=== PATIENT | female | born 2005 | race Caucasian/White ===

== ENCOUNTER 2025-03-23 12:15 | Inpatient (IN) ==
--- NOTE | 2025-03-23 13:03 | Labor Progress Brief Note ---
Date of Service March 23, 2025 Subjective 19yo @ 39w3d with elevated BP at office visit today. She does not currently have any STOCK but admits there has been one on and off for the last 3 days, not severe enough to have tried treatment and does not want tylenol at this time. No vision changes, no RUQ pain, edema stable and mild. Assessment & Plan (1) Hypertension affecting in third trimester: Plan: Labs and serial BP pending, but likely to meet gHTN criteria and need IOL. Scheduled for tomorrrow, could begin today prn. Physical Exam Physical Exam: BP on arrival 162/98. FHT Cat 1, [place] quiet. Gen: NAD Abd: Gravid/AGA, RUQ without TTP or liver enlargement Ext: 1+ edema bilateral LE, 2+ DTR R patella Results & Data Vital Signs (Past 12 Hours) Vital Signs Pulse BP 03/23/25 12:49 71 162/98 H 03/23/25 12:31 74 136/92 Coding Level of Care Code None Diagnoses Hypertension affecting in third trimester O16.3
[2025-03-23 13:22] LABS: Hematocrit (blood only) 34.8 % (37.0-47.0); Hemoglobin 11.7 g/dl (12.0-16.0); Immature Granulocytes # (auto) 0.07 K/uL (0.01-0.20); Immature Granulocytes % (auto) 0.8 %; Mean Corpuscular Hemoglobin 29.0 pg (25.0-34.0); Mean Corpuscular Volume 86.4 fL (80.0-100.0); Platelet Count 144 K/uL (130-400); RDW Standard Deviation 40.5 fL (36.4-46.3); Red Blood Count 4.03 M/uL (4.20-5.40); White Blood Count 8.69 K/ul (4.8-10.8)
[2025-03-23 13:29] LABS: Alanine Aminotransferase 15.0 U/L (7-52); Albumin Globulin Ratio 1.1 (0.9-2); Albumin Level 3.0 gm/dl (3.4-5.0); Alkaline Phosphatase 141.0 U/L (34-104); Anion Gap 6.0 (3-11); Bilirubin,Total 0.2 mg/dl (0.2-1.0); Blood Urea Nitrogen 14.0 mg/dl (6-23); Calcium 9.0 mg/dl (8.6-10.3); Carbon Dioxide 24.0 mmol/L (21-32); Chloride 107.0 mmol/L (98-107); Creatinine Clr Calc Pharmacy 197.4 ml/min; Globulin 2.8 gm/dl (2.5-4.0); Glucose 101.0 mg/dl (70-99(Fasting)); Potassium 3.9 mmol/L (3.5-5.1); Sodium 137.0 mmol/L (136-145); Total Protein 5.8 gm/dl (6.0-8.3)
[2025-03-23 14:22] LABS: Protein Creatinine Ratio Urine 5.1 (0-0.2); Total Protein Urine Random 649.0 mg/dl (0-11.9)
[2025-03-23] MEDS ORDERED: OXYTOCIN 30 UNITS/NSS 30 UNITS/500 ML BAG IV PRN (14:28)
--- NOTE | 2025-03-23 14:34 | Labor Progress Brief Note ---
Date of Service March 23, 2025 Subjective Feels well, denies PIH s/sx. Assessment & Plan (1) Severe preeclampsia: Plan: Severe range HTN with >5g estimated proteinuria, STOCK intermittently for a few days. Will manage as severe preeclampsia at 39+ weeks with IOL, Magnesium, procardia 20mg PO x1 now for acute HTN. Patient counseled and all questions answered, agreeable to proceed. Coelho placed. Physical Exam Physical Exam: BP elevated to max 187/101 Pr/Cr ratio 5.1gm Serum labs: plts 144, Cr 0.53, AST/ALT normal. Genitourinary: FHT Cat 1 [place] quiet monitoring was used to ensure reassuring status. The patient was verbally consented for placement of a coelho for cervical ripening, with discussion of risks, benefits and alternatives. All her questions were answered. Her legs were placed in lithotomy position. A lubricated, gloved hand was used to examine the cervix which was 1/50/-2/post/firm. A stylet was lubricated and inserted into a coelho catheter to give it stiffness, and the coelho catheter was then advanced along my fingers until it reached the external cervical os. The coelho was then fed forward off of the stylet, which was itself never moved beyond the external os, such that the soft catheter advanced into the uterine cavity outside of the amnion until the balloon was definitely above the internal cervical os. The balloon was then inflated using sterile water to 30cc volume. Gentle traction was used to seat the balloon downward against the internal cervical os. My hand and the stylet were removed from the vagina, and the coelho was secured to the patient's leg with a standard coelho holding sticker. There was no significant bleeding or leakage of fluid. The heart tones remained reassuring after this process, which the patient tolerated well. Results & Data Vital Signs (Past 12 Hours) Vital Signs Temp Pulse Resp BP O2 Del Method 03/23/25 14:06 81 187/101 H 03/23/25 13:33 70 145/101 H 03/23/25 13:23 71 140/96 03/23/25 13:08 75 147/101 H 03/23/25 12:49 98.8 F 71 18 162/98 H Room Air 03/23/25 12:49 71 162/98 H 10/15/25 12:31 74 136/92 Coding Level of Care Code None Diagnoses Severe preeclampsia O14.10
[2025-03-23] MEDS ORDERED: SODIUM CHLORIDE 0.9% 100 ML IV PRN (14:38)
[2025-03-23] MEDS: NIFEdipine 10 MG CAP PO STA (14:48)
[2025-03-23] MEDS: LACTATED RINGER'S 1,000 ML IV PRN (14:51)
[2025-03-23] MEDS: MAGNESIUM SULFATE / WTR 40 GM/1,000 ML BAG IV SCH (14:54)
[2025-03-23] MEDS: MAG SULFATE 4GM BOLUS FROM BAG IV ONE (14:54)
[2025-03-23 15:04] LABS: Hematocrit (blood only) 34.6 % (37.0-47.0); Hemoglobin 12.1 g/dl (12.0-16.0); Mean Corpuscular Hemoglobin 30.3 pg (25.0-34.0); Mean Corpuscular Volume 86.5 fL (80.0-100.0); Platelet Count 141 K/uL (130-400); RDW Standard Deviation 40.4 fL (36.4-46.3); Red Blood Count 4.00 M/uL (4.20-5.40); White Blood Count 9.10 K/ul (4.8-10.8)
[2025-03-23] MEDS: OXYTOCIN 30 UNITS/NSS 30 UNITS/500 ML BAG IV PRN (15:29)
[2025-03-23] MEDS: LABETALOL HCL IV 5 MG/ML 20ML IV STA (17:13)
[2025-03-23] MEDS: ACETAMINOPHEN 325 MG TAB PO PRN (18:38)
--- NOTE | 2025-03-24 07:30 | Labor Progress Brief Note ---
Date of Service March 24, 2025 Subjective Tolerating ctx and pressure Denies pain Assessment & Plan (1) Severe preeclampsia: Plan: Continue IOL, Mag, and offer epidural on request. AROM likely next check. Admission and Anticipated Discharge Date Admission Date: March 23, 2025 Physical Exam Genitourinary: Riggs out with gentle tug; cvx 4cm/50/-2 No LOF FHT Cat 1 [place] mostly quiet Results & Data Vital Signs (Past 12 Hours) Vital Signs Temp Pulse Resp BP Pulse Ox 03/24/25 07:23 83 99 03/24/25 07:18 100 03/24/25 07:18 93 H 03/24/25 07:18 103 H 144/111 H 03/24/25 07:13 85 100 03/24/25 07:11 20 03/24/25 07:09 90 93 03/24/25 07:08 92 H 98 03/24/25 07:03 97 H 100 03/24/25 06:58 85 97 03/24/25 06:53 81 97 03/24/25 06:49 80 176/89 H 03/24/25 06:48 83 99 03/24/25 06:43 80 96 03/24/25 06:38 84 97 03/24/25 06:33 78 96 03/24/25 06:28 80 97 03/24/25 06:23 81 96 03/24/25 06:18 78 163/95 H 99 03/24/25 06:13 77 98 03/24/25 06:08 83 97 03/24/25 06:03 83 100 03/24/25 06:00 18 03/24/25 05:58 79 100 03/24/25 05:53 91 H 99 03/24/25 05:48 90 100 03/24/25 05:43 78 100 03/24/25 05:38 76 100 03/24/25 05:33 81 99 03/24/25 05:28 78 97 03/24/25 05:23 70 99 03/24/25 05:18 99 03/24/25 05:18 70 03/24/25 05:18 68 120/66 03/24/25 05:13 77 99 03/24/25 05:08 72 98 03/24/25 05:03 71 98 03/24/25 05:00 15 03/24/25 04:58 74 99 03/24/25 04:53 72 99 03/24/25 04:48 98 03/24/25 04:48 71 03/24/25 04:48 73 133/72 03/24/25 04:43 72 98 03/24/25 04:38 73 98 03/24/25 04:33 79 99 03/24/25 04:28 75 98 03/24/25 04:23 73 100 03/24/25 04:18 99 03/24/25 04:18 85 03/24/25 04:18 71 118/72 03/24/25 04:12 77 100 03/24/25 04:07 83 100 03/24/25 04:02 79 99 03/24/25 04:00 18 03/24/25 03:57 96 H 100 03/24/25 03:52 79 99 03/24/25 03:47 87 100 03/24/25 03:46 78 160/95 H 03/24/25 03:42 81 100 03/24/25 03:37 79 100 03/24/25 03:32 81 100 03/24/25 03:27 89 100 03/24/25 03:22 90 100 03/24/25 03:17 86 99 03/24/25 03:12 81 100 03/24/25 03:07 84 100 03/24/25 03:02 85 100 03/24/25 03:00 98.4 F 18 03/24/25 03:00 18 03/24/25 02:57 92 H 99 03/24/25 02:55 83 157/87 H 03/24/25 02:52 96 H 99 03/24/25 02:47 90 100 03/24/25 02:42 86 97 03/24/25 02:37 86 96 03/24/25 02:32 89 98 03/24/25 02:27 86 95 03/24/25 02:25 85 94 03/24/25 02:22 86 95 03/24/25 02:19 87 94 03/24/25 02:17 85 95 03/24/25 02:12 84 96 03/24/25 02:07 84 95 03/24/25 02:06 84 94 03/24/25 02:02 84 95 03/24/25 02:00 15 03/24/25 01:58 83 94 10/16/25 01:57 83 95 03/24/25 01:52 84 95 03/24/25 01:47 84 97 03/24/25 01:46 92 H 140/78 03/24/25 01:42 84 96 03/24/25 01:37 83 97 03/24/25 01:32 83 96 03/24/25 01:27 81 98 03/24/25 01:22 84 99 03/24/25 01:17 84 100 03/24/25 01:12 85 100 03/24/25 01:07 78 98 03/24/25 01:02 78 98 03/24/25 01:00 16 03/24/25 00:57 75 98 03/24/25 00:52 77 98 03/24/25 00:47 82 97 03/24/25 00:46 84 118/70 03/24/25 00:42 86 99 03/24/25 00:37 75 99 03/24/25 00:32 77 99 03/24/25 00:31 75 115/68 03/24/25 00:27 87 99 03/24/25 00:22 87 99 03/24/25 00:17 87 97 03/24/25 00:16 88 105/64 03/24/25 00:12 78 97 03/24/25 00:07 76 97 03/24/25 00:02 77 98 03/24/25 00:01 81 104/58 L 03/24/25 00:00 15 03/23/25 23:57 73 97 03/23/25 23:52 76 98 03/23/25 23:47 78 97 03/23/25 23:46 78 110/60 03/23/25 23:42 84 98 03/23/25 23:37 78 98 03/23/25 23:32 78 98 03/23/25 23:31 76 116/64 03/23/25 23:27 78 98 03/23/25 23:22 76 99 03/23/25 23:17 74 98 03/23/25 23:16 74 134/66 03/23/25 23:12 79 100 03/23/25 23:07 83 99 03/23/25 23:02 83 145/79 H 100 03/23/25 23:00 18 03/23/25 22:57 77 100 03/23/25 22:52 81 100 03/23/25 22:47 78 99 03/23/25 22:46 78 128/81 03/23/25 22:42 85 98 03/23/25 22:37 79 100 03/23/25 22:32 100 03/23/25 22:32 87 03/23/25 22:32 81 138/88 03/23/25 22:27 77 98 03/23/25 22:22 85 99 03/23/25 22:17 81 100 03/23/25 22:16 74 130/82 03/23/25 22:12 82 100 03/23/25 22:07 86 100 03/23/25 22:02 84 100 03/23/25 22:00 16 03/23/25 21:57 85 100 03/23/25 21:52 80 99 03/23/25 21:47 88 100 03/23/25 21:46 80 131/79 03/23/25 21:42 84 100 03/23/25 21:37 87 99 03/23/25 21:32 83 100 03/23/25 21:31 82 133/77 03/23/25 21:27 79 99 03/23/25 21:22 91 H 100 03/23/25 21:17 87 98 03/23/25 21:16 81 128/66 03/23/25 21:12 86 99 03/23/25 21:07 87 98 03/23/25 21:02 86 97 03/23/25 21:01 85 120/57 L 03/23/25 21:00 18 03/23/25 20:57 84 98 03/23/25 20:52 92 H 98 03/23/25 20:47 90 98 03/23/25 20:46 82 118/57 L 03/23/25 20:42 88 99 03/23/25 20:37 80 98 03/23/25 20:32 87 100 03/23/25 20:31 94 H 111/57 L 03/23/25 20:27 86 99 03/23/25 20:22 90 99 03/23/25 20:17 80 99 03/23/25 20:16 76 112/56 L 03/23/25 20:12 79 99 03/23/25 20:07 86 100 03/23/25 20:02 93 H 100 03/23/25 20:01 94 H 118/62 03/23/25 20:00 16 03/23/25 19:57 88 100 03/23/25 19:52 89 100 03/23/25 19:47 91 H 99 03/23/25 19:46 91 H 121/68 03/23/25 19:42 91 H 100 03/23/25 19:37 89 100 03/23/25 19:32 95 H 100 03/23/25 19:31 86 115/72 Coding Level of Care Code None Diagnoses Severe preeclampsia O14.10
[2025-03-24] MEDS: fentANYL 2 MCG/ML BUPIVacaine 0.125%-NSS 100ML BAG ONE (09:30)
[2025-03-24] MEDS: LIDOCAINE 2%/EPINEPHRINE 1:200,000 20 ML PF ONE (09:35)
[2025-03-24] MEDS: SODIUM CHLORIDE 0.9% PF INJ 10 ML VIAL ONE (09:35)
[2025-03-24] MEDS: BUPIVACAINE 0.25% PF 30 ML VIAL ONE (09:35)
[2025-03-24] MEDS ORDERED: ROPIVACAINE 0.5% PF 5 MG/ML 20 ML VIAL EPI PRN (09:36)
[2025-03-24] MEDS ORDERED: BUPIVACAINE 0.25% PF 30 ML VIAL EPI PRN (09:36)
[2025-03-24] MEDS ORDERED: diphenhydrAMINE 50 MG/ML VIAL IV PRN (09:36)
[2025-03-24] MEDS ORDERED: PROMETHAZINE 6.25 MG/50.25 ML BAG IV PRN (09:36)
[2025-03-24] MEDS ORDERED: SODIUM CHLORIDE 0.9% PF INJ 10 ML VIAL EPI PRN (09:36)
[2025-03-24] MEDS ORDERED: NALOXONE HCL 1 MG in SODIUM CHLORIDE 0.9% 1,000 ML IV PRN (09:36)
[2025-03-24] MEDS ORDERED: LIDOCAINE 2% MPF LOCAL 5 ML VIAL EPI PRN (09:36)
[2025-03-24] MEDS ORDERED: NALBUPHINE HCL INJ 10 MG/ML AMP IV PRN (09:36)
[2025-03-24] MEDS ORDERED: NALOXONE HCL 0.4 MG/1 ML VIAL/CARP IV PRN (09:36)
--- NOTE | 2025-03-24 09:36 | Anesthesiology Consultation ---
Date of Service March 24, 2025 Assessment & Plan Chart Review Chart Review: Patient NOT seen in Pre Admission Testing and Acceptable Risk for Labor Epidural Consults Requested none ASA ASA2 Proposed Anesthesia Anesthesia Type: Labor Epidural Risk / Benefits Reviewed With: PT / POA / Parent / Guardian, Accepts Plan and Informed Consent Obtained History Height/Weight Height: 5 ft 5 in Weight: 100.698 kg Allergies Allergy/AdvReac Type Severity Reaction Status Date / Time amoxicillin Allergy Anaphylaxis Verified 03/23/25 11:24 Medications Home Medications Medication Instructions Recorded Confirmed Last Taken [id number] 1 mg 1 tab PO DAILY 03/23/25 03/23/25 03/22/25 09:00 tablet Active Medications Generic Name Dose Route Start Last Admin Trade Name Freq PRN Reason Stop Dose Admin Acetaminophen 650 mg 03/23/25 12:29 03/23/25 21:59 Acetaminophen 325 Mg Tab PO 04/22/25 12:28 650 mg Q4H PRN Administration Pain or Fever Lactated Ringer's 1,000 mls @ 125 mls/hr 03/23/25 14:28 03/24/25 09:03 Lr IV 03/25/25 14:27 999 mls/hr .Q8H PRN Infusion L&D Protocol Protocol Magnesium Sulfate 40 gm in 1,000 mls @ 50 mls/hr 03/23/25 14:30 03/24/25 07:01 Magnesium Sulfate / Wtr IV 04/22/25 14:29 50 mls/hr .Q20H CARMELA Administration Oxytocin 30 units in 500 mls @ 8 mls/hr 03/23/25 14:37 03/24/25 09:05 Pitocin 30 Units/Nss IV 03/25/25 14:36 0.48 units/hr .Q24H PRN 8 mls/hr Labor Induction/Augmentation Titration Protocol 0.48 UNITS/HR Past Medical History Medical History (Updated 03/23/25 @ 14:36 by Aaliyah Mccoy MD) Varicella vaccination SAB (spontaneous ) Exercise / Class Metabolic Activity II 4-5 Yardwork/Stairs/Walk up hill Past Family History Family History Grandmother (Maternal) Colorectal cancer Denies family history of Ovarian cancer Breast cancer Past Surgical History Surgical History S/P tonsillectomy and adenoidectomy H/O wisdom tooth extraction Past Anesthesia History No Hx of Anesthesia Complications and No Family Hx of Anesthesia Complications History of PONV No Hx of PONV and No Hx of Motion Sickness Social History Smoking Status: Former smoker Smoking cigarettes per day: 0 Do You Dip or Chew Tobacco: No Smoking End Date: 05/09/2024 Hx Alcohol Use: No Hx Substance Use: No substance use type: does not use Physical Exam Vital Signs Last Vital Signs Temp 36.9 C 03/24/25 07:49 Pulse 80 03/24/25 09:35 Resp 22 03/24/25 09:00 BP 136/78 03/24/25 09:35 Pulse Ox 100 03/24/25 09:33 O2 Del Method Room Air 03/24/25 07:11 ENMT Mouth: no dentition abnormality Thyromental Distance: > or= 3.5 Finger Breadths Mallampati Class: II Neck normal visual inspection Respiratory normal respiratory effort Auscultation: lungs clear to auscultation bilaterally Cardiovascular Rate/Rhythm: regular rate and regular rhythm Psychiatric Orientation: alert Testing Laboratory Results 03/23/25 14:40 03/23/25 12:46 Blood Type A Negative 03/23/25 14:40 Antibody Screen NEGATIVE 03/23/25 14:40
[2025-03-24] MEDS: ONDANSETRON INJ 2 MG/ML 2 ML VIAL IV PRN (10:07)
--- NOTE | 2025-03-24 11:05 | Labor Progress Brief Note ---
Date of Service March 24, 2025 Subjective comfortable with epidural Assessment & Plan (1) Severe preeclampsia: Plan continue current management. arom now for clear fluid. fetus overall reassuring with decreased variability from mag. continue to monitor closely. Admission and Anticipated Discharge Date Admission Date: March 23, 2025 Physical Exam Physical Exam: cx--5/75/-2 toco--q 2-5, dysfunctional pattern at present, pit at 10 efm--140s with min to mod varability, small accels , no decels Results & Data Vital Signs (Past 12 Hours) Vital Signs Temp Pulse Resp BP Pulse Ox O2 Del Method 03/24/25 10:58 77 100 03/24/25 10:56 88 109/66 03/24/25 10:53 75 98 03/24/25 10:48 72 100 03/24/25 10:43 76 100 03/24/25 10:41 76 105/60 03/24/25 10:38 71 100 03/24/25 10:33 75 99 03/24/25 10:28 100 03/24/25 10:28 78 03/24/25 10:28 78 107/66 03/24/25 10:23 76 99 03/24/25 10:18 72 99 03/24/25 10:13 81 100 03/24/25 10:12 76 103/66 03/24/25 10:10 20 03/24/25 10:08 78 100 03/24/25 10:05 71 99/55 L 03/24/25 10:03 73 98 03/24/25 10:00 73 107/53 L 03/24/25 09:58 71 99 03/24/25 09:53 81 100 03/24/25 09:52 75 119/66 03/24/25 09:48 100 03/24/25 09:48 84 03/24/25 09:48 81 119/69 03/24/25 09:43 91 H 100 03/24/25 09:42 88 126/73 03/24/25 09:38 84 100 03/24/25 09:35 80 136/78 03/24/25 09:33 100 03/24/25 09:33 81 03/24/25 09:33 80 142/75 H 03/24/25 09:31 87 147/72 H 03/24/25 09:30 88 185/89 H 03/24/25 09:28 92 H 100 03/24/25 09:23 86 100 03/24/25 09:20 96 H 182/117 H 03/24/25 09:18 90 100 03/24/25 09:13 84 100 03/24/25 09:08 81 100 03/24/25 09:03 81 100 03/24/25 09:00 22 03/24/25 08:58 82 100 03/24/25 08:53 84 100 03/24/25 08:48 100 03/24/25 08:48 85 03/24/25 08:48 83 140/78 03/24/25 08:43 79 99 03/24/25 08:38 79 100 03/24/25 08:33 75 100 03/24/25 08:28 79 99 03/24/25 08:23 81 100 03/24/25 08:18 81 142/80 H 100 03/24/25 08:13 82 100 03/24/25 08:08 78 100 03/24/25 08:03 78 100 03/24/25 08:00 20 03/24/25 07:58 81 100 03/24/25 07:53 79 100 03/24/25 07:49 36.9 C 20 03/24/25 07:48 100 03/24/25 07:48 78 03/24/25 07:48 76 162/93 H 03/24/25 07:43 84 100 03/24/25 07:38 84 100 03/24/25 07:33 80 99 03/24/25 07:28 86 97 03/24/25 07:23 83 99 03/24/25 07:18 100 03/24/25 07:18 93 H 03/24/25 07:18 103 H 144/111 H 03/24/25 07:13 85 100 03/24/25 07:11 Room Air 03/24/25 07:11 20 03/24/25 07:09 90 93 03/24/25 07:08 92 H 98 03/24/25 07:03 97 H 100 03/24/25 06:58 85 97 03/24/25 06:53 81 97 03/24/25 06:49 80 176/89 H 03/24/25 06:48 83 99 03/24/25 06:43 80 96 03/24/25 06:38 84 97 03/24/25 06:33 78 96 03/24/25 06:28 80 97 03/24/25 06:23 81 96 03/24/25 06:18 78 163/95 H 99 03/24/25 06:13 77 98 03/24/25 06:08 83 97 03/24/25 06:03 83 100 03/24/25 06:00 18 03/24/25 05:58 79 100 03/24/25 05:53 91 H 99 03/24/25 05:48 90 100 03/24/25 05:43 78 100 03/24/25 05:38 76 100 03/24/25 05:33 81 99 03/24/25 05:28 78 97 03/24/25 05:23 70 99 03/24/25 05:18 99 03/24/25 05:18 70 03/24/25 05:18 68 120/66 03/24/25 05:13 77 99 03/24/25 05:08 72 98 03/24/25 05:03 71 98 03/24/25 05:00 15 03/24/25 04:58 74 99 03/24/25 04:53 72 99 03/24/25 04:48 98 03/24/25 04:48 71 03/24/25 04:48 73 133/72 03/24/25 04:43 72 98 03/24/25 04:38 73 98 03/24/25 04:33 79 99 03/24/25 04:28 75 98 03/24/25 04:23 73 100 03/24/25 04:18 99 03/24/25 04:18 85 03/24/25 04:18 71 118/72 03/24/25 04:12 77 100 03/24/25 04:07 83 100 03/24/25 04:02 79 99 03/24/25 04:00 18 03/24/25 03:57 96 H 100 03/24/25 03:52 79 99 03/24/25 03:47 87 100 03/24/25 03:46 78 160/95 H 03/24/25 03:42 81 100 03/24/25 03:37 79 100 03/24/25 03:32 81 100 03/24/25 03:27 89 100 03/24/25 03:22 90 100 03/24/25 03:17 86 99 03/24/25 03:12 81 100 03/24/25 03:07 84 100 03/24/25 03:02 85 100 03/24/25 03:00 36.9 C 18 03/24/25 03:00 18 03/24/25 02:57 92 H 99 03/24/25 02:55 83 157/87 H 03/24/25 02:52 96 H 99 03/24/25 02:47 90 100 03/24/25 02:42 86 97 03/24/25 02:37 86 96 03/24/25 02:32 89 98 03/24/25 02:27 86 95 03/24/25 02:25 85 94 03/24/25 02:22 86 95 03/24/25 02:19 87 94 03/24/25 02:17 85 95 03/24/25 02:12 84 96 03/24/25 02:07 84 95 03/24/25 02:06 84 94 03/24/25 02:02 84 95 03/24/25 02:00 15 03/24/25 01:58 83 94 03/24/25 01:57 83 95 03/24/25 01:52 84 95 03/24/25 01:47 84 97 03/24/25 01:46 92 H 140/78 03/24/25 01:42 84 96 03/24/25 01:37 83 97 03/24/25 01:32 83 96 03/24/25 01:27 81 98 03/24/25 01:22 84 99 03/24/25 01:17 84 100 03/24/25 01:12 85 100 03/24/25 01:07 78 98 03/24/25 01:02 78 98 03/24/25 01:00 16 03/24/25 00:57 75 98 03/24/25 00:52 77 98 03/24/25 00:47 82 97 03/24/25 00:46 84 118/70 03/24/25 00:42 86 99 03/24/25 00:37 75 99 03/24/25 00:32 77 99 03/24/25 00:31 75 115/68 03/24/25 00:27 87 99 03/24/25 00:22 87 99 03/24/25 00:17 87 97 03/24/25 00:16 88 105/64 03/24/25 00:12 78 97 03/24/25 00:07 76 97 03/24/25 00:02 77 98 03/24/25 00:01 81 104/58 L 03/24/25 00:00 15 03/23/25 23:57 73 97 03/23/25 23:52 76 98 03/23/25 23:47 78 97 03/23/25 23:46 78 110/60 03/23/25 23:42 84 98 03/23/25 23:37 78 98 03/23/25 23:32 78 98 03/23/25 23:31 76 116/64 03/23/25 23:27 78 98 03/23/25 23:22 76 99 03/23/25 23:17 74 98 03/23/25 23:16 74 134/66 03/23/25 23:12 79 100 03/23/25 23:07 83 99 Coding Level of Care Code None Diagnoses Severe preeclampsia O14.10
[2025-03-24] MEDS: LIDOCAINE 2%/EPINEPHRINE 1:200,000 20 ML PF EPI STA (11:37)
[2025-03-24] MEDS: BUPIVACAINE 0.25% PF 30 ML VIAL EPI STA (11:37)
[2025-03-24] MEDS: SODIUM CHLORIDE 0.9% PF INJ 10 ML VIAL EPI STA (11:37)
--- NOTE | 2025-03-24 15:03 | Labor Progress Brief Note ---
Date of Service March 24, 2025 Subjective Patient comfortable but very sleepy, she is arousable and appropriate, but has decreased reflexes and concern for mag toxicity. Assessment & Plan (1) Severe preeclampsia: Plan iupc in. Mag off. Has had reasonable uop. will check stat mag level. pit now at 9, was 18 but 1/2 because of tachysystole. Fetus overall category two secondary to mag effect. Will continue to monitor closely. Admission and Anticipated Discharge Date Admission Date: March 23, 2025 Physical Exam Physical Exam: cx--5/100/-2 iupc placed toco--tachysystole noted, pit now in half. efm--140s with min variability, small accels, small scalp stim, early with some contractions Results & Data Vital Signs (Past 12 Hours) Vital Signs Temp Pulse Resp BP Pulse Ox O2 Del Method 03/24/25 14:54 81 100 03/24/25 14:50 73 91 03/24/25 14:49 76 100 03/24/25 14:44 67 100 03/24/25 14:41 70 107/62 03/24/25 14:39 76 100 03/24/25 14:34 78 100 03/24/25 14:29 70 100 03/24/25 14:28 68 121/76 03/24/25 14:24 70 100 03/24/25 14:19 74 100 03/24/25 14:14 73 100 03/24/25 14:13 73 112/62 03/24/25 14:09 84 100 03/24/25 14:04 64 100 03/24/25 14:00 22 03/24/25 13:59 76 100 03/24/25 13:54 66 100 03/24/25 13:49 68 100 03/24/25 13:44 68 100 03/24/25 13:42 69 130/78 03/24/25 13:39 73 100 03/24/25 13:34 69 100 03/24/25 13:29 71 100 03/24/25 13:26 70 157/89 H 03/24/25 13:24 80 100 03/24/25 13:19 74 100 03/24/25 13:14 65 100 03/24/25 13:09 84 100 03/24/25 13:04 78 100 03/24/25 13:00 37.2 C 03/24/25 13:00 22 03/24/25 12:59 81 100 03/24/25 12:56 83 133/80 03/24/25 12:54 83 100 03/24/25 12:49 77 100 03/24/25 12:44 79 100 03/24/25 12:43 87 139/89 03/24/25 12:39 88 100 03/24/25 12:33 95 H 100 03/24/25 12:28 83 100 03/24/25 12:27 80 129/75 03/24/25 12:23 85 99 03/24/25 12:18 78 100 03/24/25 12:13 77 100 03/24/25 12:11 76 119/67 03/24/25 12:08 79 100 03/24/25 12:03 74 100 03/24/25 12:00 20 03/24/25 11:58 74 99 03/24/25 11:57 75 119/69 03/24/25 11:53 72 99 03/24/25 11:48 71 100 03/24/25 11:43 74 100 03/24/25 11:42 80 125/69 03/24/25 11:38 78 100 03/24/25 11:33 81 100 03/24/25 11:28 76 100 03/24/25 11:27 74 126/72 03/24/25 11:23 73 100 03/24/25 11:18 71 100 03/24/25 11:17 37 C 03/24/25 11:13 75 100 03/24/25 11:12 72 125/69 03/24/25 11:09 20 03/24/25 11:08 76 100 03/24/25 11:03 81 99 03/24/25 10:58 77 100 03/24/25 10:56 88 109/66 03/24/25 10:53 75 98 03/24/25 10:48 72 100 03/24/25 10:43 76 100 03/24/25 10:41 76 105/60 03/24/25 10:38 71 100 03/24/25 10:33 75 99 03/24/25 10:28 100 03/24/25 10:28 78 03/24/25 10:28 78 107/66 03/24/25 10:23 76 99 03/24/25 10:18 72 99 03/24/25 10:13 81 100 03/24/25 10:12 76 103/66 03/24/25 10:10 20 03/24/25 10:08 78 100 03/24/25 10:05 71 99/55 L 03/24/25 10:03 73 98 03/24/25 10:00 73 107/53 L 03/24/25 09:58 71 99 03/24/25 09:53 81 100 03/24/25 09:52 75 119/66 03/24/25 09:48 100 03/24/25 09:48 84 03/24/25 09:48 81 119/69 03/24/25 09:43 91 H 100 03/24/25 09:42 88 126/73 03/24/25 09:38 84 100 03/24/25 09:35 80 136/78 03/24/25 09:33 100 03/24/25 09:33 81 03/24/25 09:33 80 142/75 H 03/24/25 09:31 87 147/72 H 03/24/25 09:30 88 185/89 H 03/24/25 09:28 92 H 100 03/24/25 09:23 86 100 03/24/25 09:20 96 H 182/117 H 03/24/25 09:18 90 100 03/24/25 09:13 84 100 03/24/25 09:08 81 100 03/24/25 09:03 81 100 03/24/25 09:00 22 03/24/25 08:58 82 100 03/24/25 08:53 84 100 03/24/25 08:48 100 03/24/25 08:48 85 03/24/25 08:48 83 140/78 03/24/25 08:43 79 99 03/24/25 08:38 79 100 03/24/25 08:33 75 100 03/24/25 08:28 79 99 03/24/25 08:23 81 100 03/24/25 08:18 81 142/80 H 100 03/24/25 08:13 82 100 03/24/25 08:08 78 100 03/24/25 08:03 78 100 03/24/25 08:00 20 03/24/25 07:58 81 100 03/24/25 07:53 79 100 03/24/25 07:49 36.9 C 20 03/24/25 07:48 100 03/24/25 07:48 78 03/24/25 07:48 76 162/93 H 03/24/25 07:43 84 100 03/24/25 07:38 84 100 03/24/25 07:33 80 99 03/24/25 07:28 86 97 03/24/25 07:23 83 99 03/24/25 07:18 100 03/24/25 07:18 93 H 03/24/25 07:18 103 H 144/111 H 03/24/25 07:13 85 100 03/24/25 07:11 Room Air 03/24/25 07:11 20 03/24/25 07:09 90 93 03/24/25 07:08 92 H 98 03/24/25 07:03 97 H 100 03/24/25 06:58 85 97 03/24/25 06:53 81 97 03/24/25 06:49 80 176/89 H 03/24/25 06:48 83 99 03/24/25 06:43 80 96 03/24/25 06:38 84 97 03/24/25 06:33 78 96 03/24/25 06:28 80 97 03/24/25 06:23 81 96 03/24/25 06:18 78 163/95 H 99 03/24/25 06:13 77 98 03/24/25 06:08 83 97 03/24/25 06:03 83 100 03/24/25 06:00 18 03/24/25 05:58 79 100 03/24/25 05:53 91 H 99 03/24/25 05:48 90 100 03/24/25 05:43 78 100 03/24/25 05:38 76 100 03/24/25 05:33 81 99 03/24/25 05:28 78 97 03/24/25 05:23 70 99 03/24/25 05:18 99 03/24/25 05:18 70 03/24/25 05:18 68 120/66 03/24/25 05:13 77 99 03/24/25 05:08 72 98 03/24/25 05:03 71 98 03/24/25 05:00 15 03/24/25 04:58 74 99 03/24/25 04:53 72 99 03/24/25 04:48 98 03/24/25 04:48 71 03/24/25 04:48 73 133/72 03/24/25 04:43 72 98 03/24/25 04:38 73 98 03/24/25 04:33 79 99 03/24/25 04:28 75 98 03/24/25 04:23 73 100 03/24/25 04:18 99 03/24/25 04:18 85 03/24/25 04:18 71 118/72 03/24/25 04:12 77 100 03/24/25 04:07 83 100 03/24/25 04:02 79 99 03/24/25 04:00 18 03/24/25 03:57 96 H 100 03/24/25 03:52 79 99 03/24/25 03:47 87 100 03/24/25 03:46 78 160/95 H 03/24/25 03:42 81 100 03/24/25 03:37 79 100 03/24/25 03:32 81 100 03/24/25 03:27 89 100 03/24/25 03:22 90 100 03/24/25 03:17 86 99 03/24/25 03:12 81 100 03/24/25 03:07 84 100 03/24/25 03:02 85 100 Coding Level of Care Code None Diagnoses Severe preeclampsia O14.10
[2025-03-24] MEDS: fentANYL 2 MCG/ML BUPIVacaine 0.125%-NSS 100ML BAG EPI PRN (15:07)
[2025-03-24] MEDS ORDERED: Nursing to Pharmacy Communication SCH (17:15)
--- NOTE | 2025-03-24 17:33 | Labor Progress Brief Note ---
Date of Service March 24, 2025 Subjective noted some pressure Assessment & Plan (1) Severe preeclampsia: Plan making change. continue current management. fetus with mag effect. Admission and Anticipated Discharge Date Admission Date: March 23, 2025 Physical Exam Physical Exam: cx--7.5/0 toco--dysfunctional pattern, q1-3 min, pit at 13 efm--140s with min to mod variability, small accels , no decels since turning off the mag, variability better and small accels noted mag level (when it was finally drawn) was 5.1 reflexes have returned. Results & Data Vital Signs (Past 12 Hours) Vital Signs Temp Pulse Resp BP Pulse Ox O2 Del Method 03/24/25 17:26 78 149/92 H 03/24/25 17:24 66 100 03/24/25 17:19 79 100 03/24/25 17:14 70 100 03/24/25 17:12 75 151/93 H 03/24/25 17:09 87 99 03/24/25 17:05 37.3 C 03/24/25 17:05 22 03/24/25 17:04 69 100 03/24/25 16:59 67 100 03/24/25 16:56 81 146/85 H 03/24/25 16:54 68 99 03/24/25 16:49 68 100 03/24/25 16:44 73 100 03/24/25 16:42 67 146/83 H 03/24/25 16:39 68 100 03/24/25 16:34 75 100 03/24/25 16:29 66 100 03/24/25 16:27 66 142/77 H 03/24/25 16:24 66 100 03/24/25 16:19 65 100 03/24/25 16:15 22 03/24/25 16:14 71 144/68 H 100 03/24/25 16:12 68 260/124 H 03/24/25 16:09 82 100 03/24/25 16:04 102 H 100 03/24/25 16:01 85 94 03/24/25 15:59 82 81 L 03/24/25 15:56 76 92 03/24/25 15:54 76 97 03/24/25 15:49 79 100 03/24/25 15:44 78 100 03/24/25 15:41 66 109/68 03/24/25 15:39 72 100 03/24/25 15:34 75 100 03/24/25 15:29 70 97 03/24/25 15:26 67 102/62 03/24/25 15:24 68 98 03/24/25 15:19 81 100 03/24/25 15:14 73 100 03/24/25 15:12 71 97/59 L 03/24/25 15:09 72 100 03/24/25 15:04 73 100 03/24/25 14:59 76 100 03/24/25 14:54 81 100 03/24/25 14:53 36.9 C 03/24/25 14:50 22 03/24/25 14:50 73 91 03/24/25 14:49 76 100 03/24/25 14:44 67 100 03/24/25 14:41 70 107/62 03/24/25 14:39 76 100 03/24/25 14:34 78 100 03/24/25 14:29 70 100 03/24/25 14:28 68 121/76 03/24/25 14:24 70 100 03/24/25 14:19 74 100 03/24/25 14:14 73 100 03/24/25 14:13 73 112/62 03/24/25 14:09 84 100 03/24/25 14:04 64 100 03/24/25 14:00 22 03/24/25 13:59 76 100 03/24/25 13:54 66 100 03/24/25 13:49 68 100 03/24/25 13:44 68 100 03/24/25 13:42 69 130/78 03/24/25 13:39 73 100 03/24/25 13:34 69 100 03/24/25 13:29 71 100 03/24/25 13:26 70 157/89 H 03/24/25 13:24 80 100 03/24/25 13:19 74 100 03/24/25 13:14 65 100 03/24/25 13:09 84 100 03/24/25 13:04 78 100 03/24/25 13:00 37.2 C 03/24/25 13:00 22 03/24/25 12:59 81 100 03/24/25 12:56 83 133/80 03/24/25 12:54 83 100 03/24/25 12:49 77 100 03/24/25 12:44 79 100 03/24/25 12:43 87 139/89 03/24/25 12:39 88 100 03/24/25 12:33 95 H 100 03/24/25 12:28 83 100 03/24/25 12:27 80 129/75 03/24/25 12:23 85 99 03/24/25 12:18 78 100 03/24/25 12:13 77 100 03/24/25 12:11 76 119/67 03/24/25 12:08 79 100 03/24/25 12:03 74 100 03/24/25 12:00 20 03/24/25 11:58 74 99 03/24/25 11:57 75 119/69 03/24/25 11:53 72 99 03/24/25 11:48 71 100 03/24/25 11:43 74 100 03/24/25 11:42 80 125/69 03/24/25 11:38 78 100 03/24/25 11:33 81 100 03/24/25 11:28 76 100 03/24/25 11:27 74 126/72 03/24/25 11:23 73 100 03/24/25 11:18 71 100 03/24/25 11:17 37 C 03/24/25 11:13 75 100 03/24/25 11:12 72 125/69 03/24/25 11:09 20 03/24/25 11:08 76 100 03/24/25 11:03 81 99 03/24/25 10:58 77 100 03/24/25 10:56 88 109/66 03/24/25 10:53 75 98 03/24/25 10:48 72 100 03/24/25 10:43 76 100 03/24/25 10:41 76 105/60 03/24/25 10:38 71 100 03/24/25 10:33 75 99 03/24/25 10:28 100 03/24/25 10:28 78 03/24/25 10:28 78 107/66 03/24/25 10:23 76 99 03/24/25 10:18 72 99 03/24/25 10:13 81 100 03/24/25 10:12 76 103/66 03/24/25 10:10 20 03/24/25 10:08 78 100 10/16/25 10:05 71 99/55 L 03/24/25 10:03 73 98 03/24/25 10:00 73 107/53 L 03/24/25 09:58 71 99 03/24/25 09:53 81 100 03/24/25 09:52 75 119/66 03/24/25 09:48 100 03/24/25 09:48 84 03/24/25 09:48 81 119/69 03/24/25 09:43 91 H 100 03/24/25 09:42 88 126/73 03/24/25 09:38 84 100 03/24/25 09:35 80 136/78 03/24/25 09:33 100 03/24/25 09:33 81 03/24/25 09:33 80 142/75 H 03/24/25 09:31 87 147/72 H 03/24/25 09:30 88 185/89 H 03/24/25 09:28 92 H 100 03/24/25 09:23 86 100 03/24/25 09:20 96 H 182/117 H 03/24/25 09:18 90 100 03/24/25 09:13 84 100 03/24/25 09:08 81 100 03/24/25 09:03 81 100 03/24/25 09:00 22 03/24/25 08:58 82 100 03/24/25 08:53 84 100 03/24/25 08:48 100 03/24/25 08:48 85 03/24/25 08:48 83 140/78 03/24/25 08:43 79 99 03/24/25 08:38 79 100 03/24/25 08:33 75 100 03/24/25 08:28 79 99 03/24/25 08:23 81 100 03/24/25 08:18 81 142/80 H 100 03/24/25 08:13 82 100 03/24/25 08:08 78 100 03/24/25 08:03 78 100 03/24/25 08:00 20 03/24/25 07:58 81 100 03/24/25 07:53 79 100 03/24/25 07:49 36.9 C 20 03/24/25 07:48 100 03/24/25 07:48 78 03/24/25 07:48 76 162/93 H 03/24/25 07:43 84 100 03/24/25 07:38 84 100 03/24/25 07:33 80 99 03/24/25 07:28 86 97 03/24/25 07:23 83 99 03/24/25 07:18 100 03/24/25 07:18 93 H 03/24/25 07:18 103 H 144/111 H 03/24/25 07:13 85 100 03/24/25 07:11 Room Air 03/24/25 07:11 20 03/24/25 07:09 90 93 03/24/25 07:08 92 H 98 03/24/25 07:03 97 H 100 03/24/25 06:58 85 97 03/24/25 06:53 81 97 03/24/25 06:49 80 176/89 H 03/24/25 06:48 83 99 03/24/25 06:43 80 96 03/24/25 06:38 84 97 03/24/25 06:33 78 96 03/24/25 06:28 80 97 03/24/25 06:23 81 96 03/24/25 06:18 78 163/95 H 99 03/24/25 06:13 77 98 03/24/25 06:08 83 97 03/24/25 06:03 83 100 03/24/25 06:00 18 03/24/25 05:58 79 100 03/24/25 05:53 91 H 99 03/24/25 05:48 90 100 03/24/25 05:43 78 100 03/24/25 05:38 76 100 03/24/25 05:33 81 99 Coding Level of Care Code None Diagnoses Severe preeclampsia O14.10
[2025-03-24] MEDS: LIDOCAINE 1% LOCAL 20 ML VIAL INFIL PRN (18:26)
--- NOTE | 2025-03-24 18:40 | Delivery Summary ---
Vaginal Delivery Summary Date of Service March 24, 2025 Vaginal Delivery Summary and 1st Degree LAC (right labial lac) Pre-operative Diagnosis: at 39 weeks severe pet Post-operative Diagnosis: same Procedure: coelho for cervical ripening pitocin iol epidural arom iupc first degree laceration and right labial lac and repair QBL: 121cc Anesthesia: epidural Procedure: The patient presented with elevated blood pressures and diagnosed with severe pet. mag started. Coelho bulb placed and low dose pitocin. When bulb fell out, pitocin was increased. She got epidural and then arom for clear fluid. IUPC eventually placed. The patient progresed to c/c/+2 and pushy. The patient pushed for about 30 minutes to deliver a viable female infant in jass position. The rest of the infant was then delivered without difficulty. The baby was vigorous. The nose and mouth were bulb suctioned and the was placed in the maternal abdomen for drying and attention. Cord was clamped and cut at 30 secs of life. Cord blood and segment obtained. Placenta delivered spontaneous, intact with a three vessel cord. Cervix/sulci/rectum were intact. A first degree perineal laceration and right labial lac were repaired in the normal standard fashion. Hemostasis obtained with dilute pitocin and fundal massage. Apgars were 8/9. Mother and baby doing well at the end of the delivery. [facility] [place] Vaginal Delivery Charge Delivery Type Details: and 1st Degree LAC (right labial lac)
[2025-03-24] MEDS ORDERED: HYDROCORTISONE ACETATE 25 MG SUPP PR PRN (18:58)
[2025-03-24] MEDS ORDERED: OXYTOCIN 30 UNITS/NSS 30 UNITS/500 ML BAG IV PRN (18:58)
--- NOTE | 2025-03-24 19:43 | Anesthesia Procedure Note ---
Date of Service March 24, 2025 Anesthesia Post Epidural Note Vital Signs Vital Signs: Temp Pulse Resp BP Pulse Ox O2 Del Method 36.8 C 73 18 177/81 H 100 Room Air 03/24/25 19:00 03/24/25 19:41 03/24/25 19:30 03/24/25 19:41 03/24/25 19:39 03/24/25 19:00 Pain Intensity Abdomen: Pain Intensity: 2 Notes Mental Status: alert / awake / arousable Nausea / Vomiting: adequately controlled Pain: adequately controlled Airway Patency, RR, SpO2: stable & adequate BP & HR: stable & adequate Hydration State: stable & adequate Neuraxial Anesthesia: was administered and sensory block is resolving Anesthetic Complications: no major complications apparent and Pt Satisfied with anesthetic care Epidural: Removed without complications and With tip intact
[2025-03-24] MEDS: DIPHTHER/TETAN/PERTUS Vaccine (Tdap, Adol/Adult) 0.5mL IM ONE (19:49)
[2025-03-24] MEDS: LABETALOL HCL 100 MG TAB PO SCH (20:07)
[2025-03-24] MEDS: DOCUSATE SODIUM 100 MG CAP PO SCH (20:07)
[2025-03-24] MEDS: IBUPROFEN 600 MG TAB PO PRN (20:07)
[2025-03-24] MEDS: BENZOCAINE 20% SPRY 85 APPLN/85 GM CAN EXT PRN (20:24)
[2025-03-25] MEDS: LACTATED RINGER'S 1,000 ML IV SCH
--- NOTE | 2025-03-25 05:30 | Obstetrical Progress Note ---
Date of Service March 25, 2025 Assessment & Plan (1) Severe preeclampsia: Plan Doing well. nl s/s of worsening disease. Excellent uop. bps have been in the 110-130s/70-80. May need to hold labetolol at present. Plan 24 hours of mag. Day #:: 1 Subjective Ambulation: limited ambulation Voiding: coelho catheter in place Passing Gas:: No Diet Tolerance:: clear liquids Lochia:: Small Feeding Type:: breast feeding Feeling ok. Denies ruby. Denies s/s of pet. Physical Exam Constitutional WD/WN, vitals as above Cardiovascular Extremities: + edema (tr); no calf tenderness Gastrointestinal (Abdomen) soft, nt nd ff/nt at u Neurologic patellar DTR's 2+ bilat, sensation intact Psychiatric A+Ox3, euthymic affect Results & Data Vital Signs (Past 12 Hours) Vital Signs Temp Pulse Resp BP Pulse Ox O2 Del Method 03/25/25 05:25 73 99 03/25/25 05:20 68 99 03/25/25 05:15 69 98 03/25/25 05:10 66 99 03/25/25 05:05 73 98 03/25/25 05:03 73 135/84 03/25/25 05:00 18 03/25/25 05:00 83 99 03/25/25 04:55 59 L 97 03/25/25 04:50 60 97 03/25/25 04:45 60 97 03/25/25 04:40 59 L 97 03/25/25 04:35 60 98 03/25/25 04:30 61 97 03/25/25 04:25 62 97 03/25/25 04:20 84 100 03/25/25 04:15 81 98 03/25/25 04:10 64 97 03/25/25 04:05 66 97 03/25/25 04:02 63 108/55 L 03/25/25 04:00 16 03/25/25 04:00 64 97 03/25/25 03:55 66 97 03/25/25 03:50 66 98 03/25/25 03:45 65 97 03/25/25 03:40 65 96 03/25/25 03:35 64 97 03/25/25 03:30 65 98 03/25/25 03:25 65 97 03/25/25 03:20 66 98 03/25/25 03:15 86 98 03/25/25 03:10 77 99 03/25/25 03:05 63 97 03/25/25 03:02 66 121/77 03/25/25 03:00 37.0 C 15 03/25/25 03:00 15 03/25/25 03:00 73 97 03/25/25 02:55 67 97 03/25/25 02:53 65 117/66 03/25/25 02:50 66 97 03/25/25 02:45 70 97 03/25/25 02:43 77 93 03/25/25 02:40 63 99 03/25/25 02:35 65 97 03/25/25 02:30 66 98 03/25/25 02:25 70 97 03/25/25 02:20 65 97 03/25/25 02:19 72 93 03/25/25 02:15 67 98 03/25/25 02:12 71 92 03/25/25 02:10 69 97 03/25/25 02:05 73 98 03/25/25 02:00 16 03/25/25 02:00 79 99 03/25/25 01:57 76 94 03/25/25 01:55 63 97 03/25/25 01:50 62 98 03/25/25 01:45 63 97 03/25/25 01:40 64 98 03/25/25 01:35 68 97 03/25/25 01:30 76 98 03/25/25 01:25 64 98 03/25/25 01:20 69 98 03/25/25 01:15 68 99 03/25/25 01:10 70 98 03/25/25 01:05 68 98 03/25/25 01:00 18 03/25/25 01:00 97 03/25/25 01:00 65 03/25/25 01:00 62 134/82 03/25/25 00:55 70 98 03/25/25 00:50 68 97 03/25/25 00:45 63 97 03/25/25 00:40 68 97 03/25/25 00:38 70 90 03/25/25 00:35 65 98 03/25/25 00:30 97 03/25/25 00:30 71 03/25/25 00:30 69 130/86 03/25/25 00:25 68 98 03/25/25 00:20 83 97 03/25/25 00:15 67 98 03/25/25 00:10 72 98 03/25/25 00:05 72 98 03/25/25 00:00 18 03/25/25 00:00 79 122/56 L 97 03/24/25 23:55 80 98 03/24/25 23:50 69 96 03/24/25 23:45 69 97 03/24/25 23:40 73 98 03/24/25 23:35 73 97 03/24/25 23:30 76 124/76 98 03/24/25 23:25 71 97 03/24/25 23:20 75 97 03/24/25 23:15 70 97 03/24/25 23:13 71 131/74 03/24/25 23:10 159 H 96 03/24/25 23:05 75 97 03/24/25 23:00 20 03/24/25 23:00 77 97 03/24/25 22:55 75 97 03/24/25 22:50 86 97 03/24/25 22:45 77 98 03/24/25 22:40 71 98 03/24/25 22:35 82 98 03/24/25 22:30 87 98 03/24/25 22:25 86 99 03/24/25 22:20 70 97 03/24/25 22:15 70 97 03/24/25 22:10 70 97 03/24/25 22:05 70 96 03/24/25 22:00 16 03/24/25 22:00 78 111/69 97 03/24/25 21:55 71 97 03/24/25 21:50 70 97 03/24/25 21:45 70 97 03/24/25 21:40 71 97 03/24/25 21:35 75 97 03/24/25 21:30 98 03/24/25 21:30 73 03/24/25 21:30 75 120/66 03/24/25 21:25 77 98 03/24/25 21:20 85 98 03/24/25 21:15 82 98 03/24/25 21:10 81 98 03/24/25 21:05 85 98 03/24/25 21:01 81 146/82 H 03/24/25 21:00 18 03/24/25 21:00 87 98 03/24/25 20:55 91 H 98 03/24/25 20:50 79 99 03/24/25 20:34 90 99 03/24/25 20:30 36.8 C 18 03/24/25 20:29 84 98 03/24/25 20:24 78 98 03/24/25 20:19 85 98 03/24/25 20:14 87 98 03/24/25 20:12 65 126/77 03/24/25 20:09 84 100 03/24/25 20:04 82 99 03/24/25 20:00 16 03/24/25 19:59 74 100 03/24/25 19:57 77 141/85 H 03/24/25 19:54 79 98 03/24/25 19:49 75 100 03/24/25 19:44 87 100 03/24/25 19:41 73 177/81 H 03/24/25 19:39 83 100 03/24/25 19:34 74 100 03/24/25 19:30 18 03/24/25 19:29 82 100 03/24/25 19:27 75 160/79 H 03/24/25 19:26 18 03/24/25 19:24 82 100 03/24/25 19:19 80 99 03/24/25 19:14 74 100 03/24/25 19:12 79 141/78 H 03/24/25 19:09 76 99 03/24/25 19:04 75 100 03/24/25 19:00 36.8 C 18 03/24/25 19:00 16 03/24/25 19:00 Room Air 03/24/25 18:59 76 100 03/24/25 18:56 71 167/105 H 03/24/25 18:54 71 100 03/24/25 18:49 76 100 03/24/25 18:44 79 100 03/24/25 18:42 80 162/85 H 03/24/25 18:39 75 100 03/24/25 18:34 81 100 03/24/25 18:33 95 H 92 03/24/25 18:29 85 99 03/24/25 18:27 85 94 03/24/25 18:26 83 157/79 H 03/24/25 18:24 86 100 03/24/25 18:21 97 H 90 03/24/25 18:19 88 100 03/24/25 18:14 96 H 98 03/24/25 18:09 79 100 03/24/25 18:04 75 95 03/24/25 18:03 78 153/80 H 03/24/25 17:59 91 H 100 03/24/25 17:57 88 188/88 H 03/24/25 17:54 84 100 03/24/25 17:49 93 H 100 03/24/25 17:44 98 H 100 03/24/25 17:41 86 154/98 H 03/24/25 17:39 94 H 100 03/24/25 17:34 85 99 03/24/25 17:29 82 100
[2025-03-25 06:27] LABS: Hematocrit (blood only) 29.9 % (37.0-47.0); Hemoglobin 10.0 g/dl (12.0-16.0)
[2025-03-25] MEDS: PRENATAL VITAMIN 1 TAB PO SCH (07:22)
[2025-03-25] MEDS: ACETAMINOPHEN 325 MG TAB PO PRN (11:34)
[2025-03-25 19:03] VITALS: O2SAT 98
--- NOTE | 2025-03-26 08:02 | Obstetrical Progress Note ---
Date of Service March 26, 2025 Assessment & Plan (1) care and examination: Plan: 19yo post- day 2 s/p Fells well today Continue post- care Encourage ambulation and Pain controlled Vital Signs and Hgb stable Hopeful discharge home today, follow up with OB provider next week for BP check Admission and Anticipated Discharge Date Admission Date: March 23, 2025 Supervising Physician Co-Signing Physician Notes Resident Physician Supervision Note: I was present with Dr. Vides during the history and exam. I discussed the case with the resident and agree with the findings and plan as documented in the note. Any exceptions or clarifications are listed here: [None] Documented By: Sonido Zamora MD, FACOG Subjective 19yo post- day 2 s/p Ambulation: Ambulating normally Voiding: No voiding problems Passing Gas:: Yes Diet Tolerance:: regular diet Lochia:: Small Feeding Type:: Current Pain Level: 3/10 controlled with Tylenol, Ibuprofen Resting comfortably this AM in NAD. Denies fever, chills, STOCK, vision changes, RUQ pain, CP, SOB, N/V/D, LE pain/swelling. Physical Exam Physical Exam: General: patient resting comfortably, NAD, non-toxic in appearance, answers questions appropriately Skin: warm, dry, intact Heart: S1/S2 heard, regular, no m/r/g Lungs: equal air entry bilaterally, no rales/rhonchi/wheezes Abd: Normoactive BS, soft, NT/ND, uterine fundus firm below umbilicus Ext: warm, no clubbing/cyanosis or edema, Arturo's neg Neuro: nonfocal, patient AAOx4, speech intact, no facial droop, moving all extremities on command Results & Data Vital Signs (Past 12 Hours) Vital Signs Temp Pulse Resp BP Pulse Ox O2 Del Method 03/25/25 22:28 37 C 69 18 127/82 98 Room Air Resident Activity Tracking Resident Involvement: Resident Care Provided Care Provided: OB Delivery
[2025-03-26 09:09] VITALS: BP 137/91; PULSE 70; RESP 16; TEMP 98.4
== END 2025-03-26 14:00 | disposition home or self-care (01) | DRG 807 ==
LOC: OPB 12:15 → 4S1 12:17 → 4E2 03-25 18:40